=== PATIENT | female | born 1950 | race Hispanic/Latino ===

== ENCOUNTER 2023-05-09 09:35 | Emergency (ER) | payer OTHER ==
[~2023-05-09] VITALS: Ht 157.5 cm; Wt 63.0 kg
[2023-05-09] MEDS: DICYCLOMINE HCL 10 MG/5 ML ML PO ONE (10:13)
[2023-05-09] MEDS: MORPHINE 2 MG SYG IVP ONE (10:13)
[2023-05-09] MEDS: METOCLOPRAMIDE 10 MG/2 ML VIAL IVP ONE (10:13)
[2023-05-09] MEDS: LIDOCAINE HCL 2% VISCOUS 15 ML UDCUP PO ONE (10:14)
[2023-05-09] MEDS: FAMOTIDINE 20MG VIAL IV ONE (10:14)
[2023-05-09] MEDS: MAG/ALUM/SIMETH 30 ML UDCUP PO ONE (10:14)
[2023-05-09 10:24] LABS: APPEARANCE,URINE CLEAR (CLEAR); BILIRUBIN,URINE NEGATIVE (NEGATIVE); COLOR,URINE LIGHT-YELLOW (YELLOW); GLUCOSE, URINE (UA) NEGATIVE (NEGATIVE); KETONES,URINE NEGATIVE (NEGATIVE); LEUKOCYTE ESTERASE ,URINE 75 Leu/uL (NEGATIVE); NITRATE,URINE NEGATIVE (NEGATIVE); OCCULT BLOOD,URINE NEGATIVE (NEGATIVE); PH,URINE 6.5 (5.0-8.0); PROTEIN,URINE NEGATIVE (NEGATIVE); UROBILINOGEN,URINE 0.2 mg/dL (0.2-1.0)
[2023-05-09 10:27] LABS: ADD UA MICROSCOPIC YES
[2023-05-09 10:27] LABS: BASOPHILS # (AUTO) 0.04 K/uL (0.00-0.20); BASOPHILS % (AUTO) 0.6 % (0.0-5.0); EOSINOPHILS # (AUTO) 0.13 K/uL (0.00-0.70); EOSINOPHILS % (AUTO) 2.1 % (0.0-8.0); HEMATOCRIT 41.2 % (36-48); IMMATURE GRANULOCYTE ABSOLUTE 0.02 K/uL (0-1); LYMPHOCYTES # (AUTO) 2.9 K/uL (1.0-4.8); LYMPHOCYTES % (AUTO) 47.4 % (21.0-51.0); MEAN CORPUSCULAR HEMOGLOBIN 30.3 pg (27.0-33.0); MEAN CORPUSCULAR HGB CONC 33.5 g/dL (32.0-36.0); MEAN CORPUSCULAR VOLUME 90.4 fL (79-99); MONOCYTES # (AUTO) 0.5 K/uL (0.1-1.0); MONOCYTES % (AUTO) 8.4 % (3.0-13.0); NEUTROPHILS # (AUTO) 2.5 K/uL (1.8-7.7); NEUTROPHILS % (AUTO) 41.2 % (40.0-77.0); PLATELET COUNT (AUTO) 204 K/uL (130-400); RED BLOOD CELL COUNT(AUTO) 4.56 MIL/uL (4.00-5.50); RED CELL DISTRIBUTION WIDTH 13.3 % (11.0-15.5); WHITE BLOOD COUNT (AUTO) 6.2 K/uL (4.8-10.8)
[2023-05-09 10:28] LABS: SQUAMOUS EPITHELIAL CELL,UR FEW /HPF (0-2)
[2023-05-09 11:00] LABS: ALBUMIN 3.6 g/dL (3.5-5.0); BILIRUBIN,TOTAL 0.6 mg/dL (0.2-1.0); CREATININE 0.6 mg/dL (0.5-1.0); POTASSIUM 3.4 mmol/L (3.5-5.1); TOTAL PROTEIN, SERUM 7.4 g/dL (6.0-8.3)
[2023-05-09] MEDS: CEFTRIAXONE 2GM VIAL IVPB ONE (12:59)
[2023-05-09] MEDS: METRONIDAZOLE 500MG/100ML BAG 100 ML IVPB SCH (13:46)
[2023-05-09] MEDS ORDERED: ONDA4TAB10 PO (14:36)
[2023-05-09] MEDS ORDERED: CEPH500T PO (14:36)
[2023-05-09] MEDS ORDERED: METR-172 PO (14:36)
[2023-05-09 15:08] VITALS: BP 132/72; PULSE 84; RESP 16; O2SAT 98
== END 2023-05-09 15:14 | disposition home or self-care (01) ==
LOC: EDH 09:35
DX: N39.0 Urinary tract infection, site not specified (principal); K52.9 Noninfective gastroenteritis and colitis, unspecified; J45.909 Unspecified asthma, uncomplicated; Z90.49 Acquired absence of other specified parts of digestive tract
CPT/HCPCS: 99285; 74176; 96365; 96375; 71045; 96367; 84484 ×2; 80053; 83690; 85025; 87088; 81001; 36415; 93005 ×2; J3490 ×2; J2270; J0696; J2765

== ENCOUNTER 2023-08-12 22:54 | Emergency (ER) | payer OTHER ==
[~2023-08-12] VITALS: Ht 157.5 cm; Wt 63.0 kg
[~2023-08-12 22:54] MED LIST: CEPH500T PO; METR-172 PO; ONDA-243 PO
[2023-08-12] MEDS: ACETAMINOPHEN 500 MG TABLET PO ONE (23:25)
[2023-08-12] MEDS: ORPHENADRINE 60MG/2ML IM ONE (23:30)
[2023-08-13 00:01] LABS: SARS-CoV-2, RNA, NAAT NEGATIVE SARS CoV-2 (NEGATIVE)
[2023-08-13 00:25] LABS: BASOPHILS # (AUTO) 0.04 K/uL (0.00-0.20); BASOPHILS % (AUTO) 0.4 % (0.0-5.0); EOSINOPHILS # (AUTO) 0.04 K/uL (0.00-0.70); EOSINOPHILS % (AUTO) 0.4 % (0.0-8.0); HEMATOCRIT 40.4 % (36-48); IMMATURE GRANULOCYTE ABSOLUTE 0.06 K/uL (0-1); LYMPHOCYTES # (AUTO) 1.6 K/uL (1.0-4.8); LYMPHOCYTES % (AUTO) 14.6 % (21.0-51.0); MEAN CORPUSCULAR HEMOGLOBIN 30.4 pg (27.0-33.0); MEAN CORPUSCULAR HGB CONC 33.4 g/dL (32.0-36.0); MONOCYTES # (AUTO) 1.2 K/uL (0.1-1.0); MONOCYTES % (AUTO) 11.5 % (3.0-13.0); NEUTROPHILS # (AUTO) 7.8 K/uL (1.8-7.7); NEUTROPHILS % (AUTO) 72.5 % (40.0-77.0); PLATELET COUNT (AUTO) 149 K/uL (130-400); RED BLOOD CELL COUNT(AUTO) 4.44 MIL/uL (4.00-5.50); WHITE BLOOD COUNT (AUTO) 10.8 K/uL (4.8-10.8)
[2023-08-13] MEDS ORDERED: CYCL7.5T27 PO (00:29)
[2023-08-13] MEDS ORDERED: NAPR375T6 PO (00:29)
[2023-08-13] MEDS: POTASSIUM BICARB/CIT AC 25 MEQ TABLET.EFF PO ONE (00:52)
[2023-08-13 01:04] VITALS: BP 135/72; PULSE 81; RESP 18; O2SAT 98
[2023-08-13] MEDS: LIDOCAINE 4% ADH..PATCH TP ONE (01:07)
[2023-08-14] MEDS ORDERED: ACET-2079 PO (12:36)
[2023-08-14] MEDS ORDERED: METH4TAB3 PO (12:36)
== END 2023-08-13 01:12 | disposition home or self-care (01) ==
LOC: EDH 22:54
DX: M43.6 Torticollis (principal); J45.909 Unspecified asthma, uncomplicated; Z20.822 Contact with and (suspected) exposure to COVID-19
CPT/HCPCS: 36415; 71045; 80048; 82550; 84484; 85025; 87635; 93005; 96372; J2360

== ENCOUNTER 2023-08-14 11:17 | Emergency (ER) | payer OTHER ==
[~2023-08-14] VITALS: Ht 157.5 cm; Wt 62.6 kg
[~2023-08-14 11:17] MED LIST changes: +CYCL7.5T27 PO; +NAPR375T6 PO
[2023-08-14 11:29] VITALS: PULSE 97
[2023-08-14] MEDS ORDERED: METH4TAB3 PO (12:36)
[2023-08-14] MEDS ORDERED: ACET-2079 PO (12:36)
[2023-08-14] MEDS: SOLU-MEDROL 125MG VIAL IM ONE (12:44)
[2023-08-14] MEDS: CYCLOBENZAPRINE HCL 10 MG TABLET PO ONE (12:45)
[2023-08-14] MEDS: ACETAMINOPHEN WITH CODEINE 1 TAB TAB PO ONE (12:46)
[2023-08-14 12:50] VITALS: BP 136/91; RESP 18; O2SAT 89
== END 2023-08-14 12:57 | disposition home or self-care (01) ==
LOC: EDH 11:17
DX: M43.6 Torticollis (principal); J45.909 Unspecified asthma, uncomplicated
CPT/HCPCS: 99283; 96372; J2919

== ENCOUNTER 2023-11-04 07:36 | Emergency (ER) | payer OTHER ==
[~2023-11-04] VITALS: Ht 157.5 cm; Wt 57.6 kg
[~2023-11-04 07:36] MED LIST changes: +ACET-2079 PO; +METH4TAB3 PO
[2023-11-04 08:17] LABS: BASOPHILS # (AUTO) 0.09 K/uL (0.00-0.20); BASOPHILS % (AUTO) 0.9 % (0.0-5.0); EOSINOPHILS # (AUTO) 0.07 K/uL (0.00-0.70); EOSINOPHILS % (AUTO) 0.7 % (0.0-8.0); HEMATOCRIT 42.2 % (36-48); IMMATURE GRANULOCYTE ABSOLUTE 0.42 K/uL (0-1); LYMPHOCYTES # (AUTO) 3.7 K/uL (1.0-4.8); LYMPHOCYTES % (AUTO) 35.5 % (21.0-51.0); MEAN CORPUSCULAR HEMOGLOBIN 29.9 pg (27.0-33.0); MEAN CORPUSCULAR HGB CONC 32.7 g/dL (32.0-36.0); MEAN CORPUSCULAR VOLUME 91.3 fL (79-99); MONOCYTES # (AUTO) 1.1 K/uL (0.1-1.0); MONOCYTES % (AUTO) 10.3 % (3.0-13.0); NEUTROPHILS % (AUTO) 48.5 % (40.0-77.0); PLATELET COUNT (AUTO) 310 K/uL (130-400); RED BLOOD CELL COUNT(AUTO) 4.62 MIL/uL (4.00-5.50); RED CELL DISTRIBUTION WIDTH 14.1 % (11.0-15.5); WHITE BLOOD COUNT (AUTO) 10.3 K/uL (4.8-10.8)
[2023-11-04 08:33] LABS: CREATININE 0.8 mg/dL (0.5-1.0); POTASSIUM 3.8 mmol/L (3.5-5.1)
[2023-11-04 09:33] LABS: APPEARANCE,URINE CLEAR (CLEAR); BILIRUBIN,URINE NEGATIVE (NEGATIVE); COLOR,URINE YELLOW (YELLOW); GLUCOSE, URINE (UA) NEGATIVE (NEGATIVE); KETONES,URINE NEGATIVE (NEGATIVE); LEUKOCYTE ESTERASE ,URINE NEGATIVE Leu/uL (NEGATIVE); NITRATE,URINE NEGATIVE (NEGATIVE); OCCULT BLOOD,URINE NEGATIVE (NEGATIVE); PROTEIN,URINE NEGATIVE (NEGATIVE); UROBILINOGEN,URINE 0.2 mg/dL (0.2-1.0)
[2023-11-04 09:35] LABS: ADD UA MICROSCOPIC NO
[2023-11-04] MEDS: PHENAZOpyridine HCL 200 MG TAB 200 MG TABLET PO SCH (10:00)
[2023-11-04 10:27] VITALS: BP 131/87; PULSE 90; RESP 16; TEMP 98.8; O2SAT 96
[2023-11-04] MEDS ORDERED: CLOT45CR23 VG (10:35)
[2023-11-04] MEDS ORDERED: PHEN-847 PO (10:35)
== END 2023-11-04 10:53 | disposition home or self-care (01) ==
LOC: EDH 07:36
DX: R30.0 Dysuria (principal); Z90.49 Acquired absence of other specified parts of digestive tract
CPT/HCPCS: 36415; 80048; 81003; 85025